=== PATIENT | female | born 1980 | race Caucasian/White ===

== ENCOUNTER 2025-06-04 17:52 | Inpatient (IN) | payer OTHER ==
[2025-06-04] MEDS ORDERED: ZOLPIDEM TARTRATE 10 MG TABLET PO PRN (18:30)
[2025-06-04] MEDS ORDERED: LORazepam 2 MG/ML VIAL ONE (19:47)
[2025-06-04] MEDS ORDERED: IBUPROFEN 400 MG TABLET PO PRN (20:00)
[2025-06-04] MEDS ORDERED: LOPERAMIDE HCL 2 MG CAPSULE PO PRN (20:00)
[2025-06-04] MEDS ORDERED: ACETAMINOPHEN 325 MG TABLET PO PRN (20:00)
[2025-06-04] MEDS ORDERED: MAG HYDROX/ALUMINUM HYD/SIMETH ES 30 ML SUSPENSION UDCUP PO PRN (20:00)
[2025-06-04] MEDS ORDERED: MAGNESIUM HYDROXIDE SUSPENSION 30 ML UDCUP PO PRN (20:00)
[2025-06-04] MEDS ORDERED: ONDANSETRON 4 MG TABLET PO PRN (20:00)
[2025-06-04] MEDS ORDERED: DOCUSATE SODIUM 100 MG CAPSULE PO PRN (20:00)
[2025-06-04] MEDS ORDERED: NICOTINE 14 MG/24 HOUR PATCH TD PRN (20:00)
[2025-06-04] MEDS ORDERED: ALBUTEROL SULFATE HFA 90 MCG/PUFF 8 GM INHALER IH PRN (20:00)
[2025-06-04] MEDS ORDERED: GuaiFENesin/D-METHORPHAN [SUGAR-FREE] 200-20MG/10 ML SYRUP UDCUP PO PRN (20:00)
[2025-06-04] MEDS ORDERED: PETROLATUM,WHITE 28 GM JELLY TP PRN (20:00)
[2025-06-04 22:17] VITALS: BP 108/82; PULSE 90; RESP 18; TEMP 98; O2SAT 100
[2025-06-05 08:29] LABS: PLATELET COUNT (AUTO) 274 K/uL (150-450); RED BLOOD CELL COUNT(AUTO) 4.40 MIL/uL (4.00-5.20); RED CELL DISTRIBUTION WIDTH 12.4 % (11.5-14.5); WHITE BLOOD COUNT (AUTO) 9.7 K/uL (4.5-11.0)
[2025-06-05 08:33] VITALS: BP 110/77; PULSE 100; RESP 18; TEMP 97.5; O2SAT 95
[2025-06-05 08:57] LABS: ASPARTATE AMINOTRANSFERASE 18 U/L (15-37); CALCIUM, TOTAL 8.4 mg/dL (8.8-10.5); CHOL/HDL RATIO 2.7 (3.9-5.7); CREATININE 0.59 mg/dL (0.60-1.30); GLOMERULAR FILTR. RATE CALC > 60 mL/min (>60); GLUCOSE,RANDOM 85 mg/dL (70-110); LDL CHOL (CALC.) 99 mg/dL (0-130); SODIUM SERUM 141 mmol/L (136-145); TOTAL PROTEIN, SERUM 7.2 g/dL (6.4-8.2); UREA NITROGEN, BLOOD 10 mg/dL (7-18)
[2025-06-05] MEDS: LITHIUM CARBONATE 300 MG TABLET PO SCH (16:36)
[2025-06-05 21:18] VITALS: BP 108/78; PULSE 113; RESP 18; TEMP 98.5; O2SAT 98
[2025-06-06 09:23] VITALS: BP 111/87; PULSE 113; RESP 17; TEMP 98.1; O2SAT 95
[2025-06-06] MEDS ORDERED: LAMO25TA36 PO (10:51)
[2025-06-06] MEDS ORDERED: LITH300T PO (10:51)
[2025-06-06] MEDS ORDERED: QUET300T2 PO (10:51)
[2025-06-06 11:08] VITALS: PULSE 98
== END 2025-06-06 17:29 | disposition home or self-care (01) | DRG 885 ==
LOC: B2S 18:30
PROVIDERS: ADMIT Psychiatry & Neurology Child & Adolescent Psychiatry; ATTEND Psychiatry & Neurology Child & Adolescent Psychiatry
PROC: GZ56ZZZ Individual Psychotherapy, Supportive (ICD-10-PCS; 2025-06-05)
PROC: GZ58ZZZ Individual Psychotherapy, Cognitive-Behavioral (ICD-10-PCS; 2025-06-05)
PROC: GZ52ZZZ Individual Psychotherapy, Cognitive (ICD-10-PCS; principal; 2025-06-06)
DX: F31.2 Bipolar disorder, current episode manic severe with psychotic features (principal); E87.6 Hypokalemia; F41.9 Anxiety disorder, unspecified; G47.00 Insomnia, unspecified; Z91.010 Allergy to peanuts; Z91.148 Patient's other noncompliance with medication regimen for other reason
CPT/HCPCS: 80053; 80061; 83036; 84439; 84443; 84703; 85025; G0480; J1200; J1630; J2060